=== PATIENT | female | born 1955 | race Caucasian/White ===

== ENCOUNTER 2019-05-18 16:11 | Outpatient (CLI) | payer BC, OTHER | END 2019-05-18 21:45 | disposition home or self-care (01) | LOC: SMA 16:11 | PROVIDERS: ATTEND Family Medicine | DX: Z12.31 Encounter for screening mammogram for malignant neoplasm of breast (principal); J45.909 Unspecified asthma, uncomplicated | CPT/HCPCS: 71046-TC; 77067 ==